=== PATIENT | male | born 1980 | race African-American/Black ===

== ENCOUNTER 2020-05-13 07:47 | Emergency (ER) | payer MEDICAID ==
[~2020-05-13] VITALS: Ht 177.8 cm; Wt 131.0 kg
[~2020-05-13 07:47] MED LIST: ATOR10TA PO; CLON0.1T14 PO; FURO40TA5 PO; HYDR-4135 PO; NIFE-32 PO; POTA20TA82 PO; TOPUD PO
[2020-05-13 08:47] LABS: BASOPHILS % 0.6 % (0.0-2.0); EOSINOPHILS % 1.6 % (0.0-5.0); HEMATOCRIT. 35.8 % (42.0-52.0); HEMOGLOBIN. 11.8 g/dL (14.0-18.0); LYMPHOCYTES % 7.6 % (20.0-50.0); MEAN CORPUSCULAR HEMOGLOBIN 28.8 pg (28.0-32.0); MONOCYTES % 3.7 % (2.0-8.0); NEUTROPHILS % 86.5 % (40.0-76.0); PLATELET 440 x1000/uL (130-400); RED BLOOD CELL COUNT 4.12 mill/uL (4.7-6.1); RED CELL DISTRIBUTION WIDTH 18.3 % (11.6-14.6)
[2020-05-13 08:54] LABS: CHLORIDE 104 mEq/L (98-107)
[2020-05-13 10:10] VITALS: BP 210/110
== END 2020-05-13 10:11 | disposition home or self-care (01) ==
LOC: ER 07:47
DX: B34.9 Viral infection, unspecified (principal); I11.0 Hypertensive heart disease with heart failure; I50.9 Heart failure, unspecified; R53.1 Weakness; Z79.899 Other long term (current) drug therapy; Z20.828 Contact with and (suspected) exposure to other viral communicable diseases
CPT/HCPCS: 36415; 71045; 80053; 85025; 87635; 93005; 99285; Z7610